=== PATIENT | female | born 1945 | race Caucasian/White ===

== ENCOUNTER 2016-10-16 16:38 | Emergency (ER) | payer MEDICARE, BC ==
[2016-10-16] MEDS ORDERED: NS 0.9% 1000 ML* 1,000 ML IV ONE (17:30)
[2016-10-16] MEDS ORDERED: Ondansetron ODT TAB* 4 MG SL PRN (17:32)
--- NOTE | 2016-10-16 17:33 | UC ---
UC General HPI - HPI Summary HPI Summary: 71 y/o female presents to the urgent care c/o sinus pain,persistent nausea for the past week. Pt reports symptoms started with nasal congestion and yellowish discharge, then she had 4 episodes of N/V on lst Monday10/10/2016. Since then she has had decrease appetite , only drinking Gatorade. She went to her PCP on and he Rx Zofran which she just took this morning. She states she has body aches, sinus pain and pressure, mild abdominal discomfort, weakness and mild ROBERTSON and dizziness. Pt had a BM this morning which was soft and ate some Finnish fries about 2 hrs ago. Pt denies fever, SOB, chest pain, urinary symptoms , - History of Current Complaint Chief Complaint: UCGI Stated Complaint: VOMITING,SINUS PAIN Time Seen by Provider: 10/16/16 17:10 Hx Obtained From: Patient, Family/Piano Refinisher - daughter Onset/Duration: Gradual Onset, Lasting Weeks - 1 week, Still Present Timing: Constant Onset Severity: Mild Current Severity: Moderate Pain Intensity: 6 - ROBERTSON Associated Signs & Symptoms: Positive: Abdominal Pain - mild generalized disconfort, Dizziness. Negative: Back Pain, Chest Pain, Diarrhea, Dysuria - Allergy/Home Medications Allergies/Adverse Reactions: Allergies Allergy/AdvReac Type Severity Reaction Status Date / Time Sulfa Antibiotics Allergy Hives Verified 10/19/16 15:05 Home Medications: Home Medications ALPRAZolam TAB* [Xanax TAB*] 0.5 mg PO TID PRN 10/16/16 [History Confirmed 10/16] FLUoxetine CAP* [Prozac CAP*] 40 mg PO DAILY 10/16/16 [History Confirmed ] Metoclopramide TAB* [Reglan TAB*] 10 mg PO Q6H PRN 10/16/16 [History Confirmed 10/16/16] Multiple Vitamins W/ Minerals [Multivitamin Adult] 1 chw PO DAILY 10/16/16 [ History Confirmed 10/16/16] Omeprazole CAP* [Prilosec CAP* 20 MG] 40 mg PO DAILY 10/16/16 [History Confirmed 10/16/16] Ondansetron ODT TAB* [Zofran 4 MG Odt TAB*] 4 mg PO Q6H PRN 10/16/16 [History Confirmed 10/16/16] Simvastatin [Zocor 40 MG (NF)] 40 mg PO QPM 10/16/16 [History Confirmed 10/16/16 ] ValACYclovir (*) [Valtrex 1 GM(*)] 2 gm PO BID 10/16/16 [History Confirmed 10/16] Valsartan/HCTZ 160/25(NF) [Diovan Hct 160/25(NF)] 1 tab PO DAILY 10/16/16 [ History Confirmed 10/16/16] metroNIDAZOLE VAGINAL 0.75%* TOPICAL PRN 10/16/16 [History] PMH/Surg Hx/FS Hx/Imm Hx Previously Healthy: Yes Endocrine History: Dyslipidemia Cardiovascular History: Hypertension Psychological History: Depression Cancer History: Breast Cancer - 10 year ago s/p lumpectomy - Surgical History Surgical History: Yes Surgery Procedure, Year, and Place: left leg surgery, see above - Family History Known Family History: Positive: Hypertension - Social History Occupation: Employed Part-time Lives: With Family Alcohol Use: None Substance Use Type: None Smoking Status (MU): Former Smoker Review of Systems Constitutional: Fatigue - body aches Skin: Negative Eyes: Negative ENT: Nasal Discharge - yellowish, Sinus Congestion, Sinus Pain/Tenderness Respiratory: Negative Cardiovascular: Negative Gastrointestinal: Abdominal Pain - mild disconfort, Nausea Genitourinary: Negative Motor: Negative Neurovascular: Negative Musculoskeletal: Negative Neurological: Headache - mild Psychological: Negative Is Patient Immunocompromised?: No All Other Systems Reviewed And Are Negative: Yes Physical Exam Triage Information Reviewed: Yes Appearance: Well-Appearing, No Pain Distress, Well-Nourished Vital Signs: Initial Vital Signs Temp 97.4 F 10/16/16 16:39 Pulse 103 10/16/16 16:39 Resp 16 10/16/16 16:39 BP 156/82 10/16/16 16:39 Pulse Ox 100 10/16/16 16:39 Vital Signs Reviewed: Yes Eye Exam: Normal Eyes: Positive: Conjunctiva Clear - PERRLA, EOMI ENT Exam: Normal ENT: Positive: Normal ENT inspection, Hearing grossly normal, Pharynx normal, Nasal congestion, Nasal drainage - edematous erythematous nasal mucosa w/ yellowish nasal discharge, TMs normal - B/L external ear canals impacted with cerumen. Negative: Tonsillar swelling, Tonsillar exudate Neck exam: Normal Neck: Positive: Supple, Nontender, No Lymphadenopathy Respiratory Exam: Normal Respiratory: Positive: Chest non-tender, Lungs clear, Normal breath sounds Cardiovascular Exam: Normal Cardiovascular: Positive: RRR, No Murmur, Pulses Normal, Brisk Capillary Refill Abdominal Exam: Normal Abdomen Description: Positive: Nontender, No Organomegaly, Soft. Negative: CVA Tenderness (R), CVA Tenderness (L) Bowel Sounds: Positive: Present Musculoskeletal Exam: Normal Musculoskeletal: Positive: Strength Intact, ROM Intact, No Edema Neurological Exam: Normal Psychological Exam: Normal Skin Exam: Normal Course/Dx - Course Course Of Treatment: 71 y/o female presents to the urgent care c/o sinus pain, persistent nausea for the past week. Pt reports symptoms started with nasal congestion and yellowish discharge, then she had 4 episodes of N/V on lst Monday10/10/2016. Since then she has had decrease appetite , only drinking Gatorade. She went to her PCP on 10/12/2016 and he Rx Zofran which she just took this morning. She states she has body aches, sinus pain and pressure, mild abdominal discomfort, weakness and mild ROBERTSON and dizziness. Pt had a BM this morning which was soft and ate some Finnish fries about 2 hrs ago. Pt denies fever, SOB, chest pain, urinary symptoms Hx obtained. PE abnormal finding: B/L maxillary and frontal sinus tender to percussion with erythematous nasal mucosa and yellowish drainage, B/L exteranal ear canal inpacted with cerumen. Pt mildly dehydrated. HR 103pbm, and BP156/86. IV fluids adn Zofran ordered 1 bag, Pt felt better after hydration. Rapid Influeza: negative. UA ordered:+ leukoesteraces, +blood. Pt with possible UTI. Pt given first dose of Macrobid at the clinic. Rx Macrobid 100mg PO and Pyridium PO to alleviate urinary symptoms. I discussed all the findings and test results with the patient and daughter. Patient was instructed to return to the ER immediately if any of the symptoms return or worsens. Plan of care was discussed with the patient and understands and agrees. All questions were answered at patient satisfaction. There were no further complaints or concerns. Pt hemodinamically stable, A&OX3, left the clinic ambulating and feeling better. - Differential Dx - Multi-Symptom Differential Diagnoses: Urinary Tract Infection, Other - Influeza, Sinusitis, URI, Bronchitis, gastroenteritis, Provider Diagnoses: 1- Nausea and vomiting. 2- B/L impacted Cerumen. 3-UTI. 4 - Uncontrolled HTN Discharge - Discharge Plan Condition: Stable Disposition: HOME Prescriptions: Nitrofurantoin Macrocrystals* [Macrodantin*] 100 mg PO BID #9 cap Phenazopyridine TAB* [Pyridium 100 mg TAB*] 100 mg PO TID #6 tab Patient Education Materials: Dehydration (ED), Urinary Tract Infection in Women (ED), Cerumen Impaction (ED), Low Sodium Diet (ED) Forms: *Work Release Referrals: Juan José Blankenship MD [Primary Care Provider] - 2 Days Additional Instructions: 1- Please take Macrobid 100mg PO x 5 days. Pyridium 100mg PO TID x 2 days for urinary tract infection. Increase increase fluid intake. 2-Continue taking the Zofran at home for nausea, increase fluid intake, rest,m east small portions. If you develop vomiting, abdominal pain, fever, dizziness increases please go immediately to the ER for further evaluation and treatment. 3-See your PCP in 2-3 days for a f/u on your HTN
[2016-10-16] MEDS ORDERED: Ondansetron INJ* 2 MG/ML VIAL ONE (17:53)
[2016-10-16] MEDS ORDERED: Ondansetron INJ* 2 MG/ML VIAL IV ONE (17:54)
[2016-10-16] MEDS ORDERED: Nitrofurantoin Macrocrystals* 50 MG CAP PO ONE (19:05)
[2016-10-16 19:18] VITALS: BP 129/91
== END 2016-10-16 19:30 | disposition home or self-care (01) ==
LOC: UCEAST 16:38
DX: R11.2 Nausea with vomiting, unspecified (principal); H61.23 Impacted cerumen, bilateral; N39.0 Urinary tract infection, site not specified; I10 Essential (primary) hypertension
CPT/HCPCS: 81003; 87086; 87502; 96360; 96361; 96374; 99212; A9270-GY; G0463; J2405

== ENCOUNTER 2016-10-19 15:00 | Emergency (ER) | payer BC, MEDICARE ==
[2016-10-19] MEDS ORDERED: NS 0.9% 1000 ML* 1,000 ML IV ONE (16:25)
[2016-10-19 16:38] LABS: Hematocrit 40 % (35-47); Hemoglobin 13.7 g/dl (12.0-16.0); Mean Corpuscular HGB Conc 35 g/dl (31-36); Mean Corpuscular Hemoglobin 33 pg (27-31); Mean Corpuscular Volume 97 fL (80-97); Mean Platelet Volume 7 um3 (7.4-10.4); Red Blood Count 4.11 10^6/ul (4.0-5.4); Red Cell Distribution Width 12 % (10.5-15); White Blood Count 9.8 10^3/ul (3.5-10.8)
[2016-10-19 16:51] LABS: Urine Bacteria Absent (Absent); Urine Bilirubin Negative (Negative); Urine Glucose Negative (Negative); Urine Nitrite Positive (Negative)
[2016-10-19 16:53] LABS: ALT 12 U/L (7-52); AST 15 U/L (13-39); Albumin 4.4 g/dL (3.2-5.2); Alkaline Phosphatase 91 U/L (34-104); Anion Gap 10 mmol/L (2-11); BUN/Creatinine Ratio 8.2 (8-20); Blood Urea Nitrogen 8 mg/dL (6-24); C Reactive Protein < 1.00 mg/L (< 5.00); CO2 Carbon Dioxide 26 mmol/L (22-32); Calcium 10.1 mg/dL (8.6-10.3); Chloride 101 mmol/L (101-111); EGFR African American 72.8 (>60); EGFR Non-African American 56.6 (>60); Globulin 3.1 g/dL (2-4); Glucose 105 mg/dL (70-100); Magnesium 1.8 mg/dL (1.9-2.7); Potassium 3.2 mmol/L (3.5-5.0); Sodium 137 mmol/L (133-145); Total Protein 7.5 g/dL (6.4-8.9)
[2016-10-19 17:10] LABS: TSH (Thyroid Stimulating Horm) 1.08 mcIU/mL (0.34-5.60)
--- NOTE | 2016-10-19 18:13 | RAD ---
INDICATION: Right flank pain COMPARISON: None TECHNIQUE: Noncontrast axial source images were acquired from the level hemidiaphragms to the symphysis pubis as part of CT imaging for renal stone. Lung bases: The lung bases are clear. Liver: The liver is normal in size. Noncontrast imaging shows no evidence of a hepatic mass or ductal dilatation. Gallbladder: There are no calcified gallstones. There is no evidence of wall thickening or pericholecystic fluid.. Spleen: The spleen is normal in size. The noncontrast CT appearance is normal. Pancreas: Noncontrast imaging shows no pancreatic mass or ductal dilitation. There is partial fatty replacement Adrenal glands: No masses are identified. Kidneys/Bladder: There is no evidence of nephrolithiasis or CT evidence of hydronephrosis. Noncontrast imaging shows no evidence of a renal mass. The bladder is unremarkable.. Adenopathy: There is no evidence of intraperitoneal or retroperitoneal adenopathy. Evaluation is limited without oral contrast. Fluid collections: There are no free or localized fluid collections. Vessels: The aorta and iliac vessels are normal in caliber. There are no significant atherosclerotic changes. The IVC appears normal Pelvic organs: The uterus and adnexa appear normal GI tract: Evaluation of the bowel is limited without oral contrast. The stomach, small bowel, and lower GI tract appear grossly normal. There are no obstructive findings. The appendix is visualized and appears normal. Soft tissues: No soft tissue abnormalities of the extraperitoneal abdomen or pelvis are identified. Osseous structures: There are no acute osseous findings. IMPRESSION: NO ACUTE CT FINDINGS. NO EVIDENCE OF UROLITHIASIS. NO MASS OR INFLAMMATORY CHANGE.
[2016-10-19 19:14] VITALS: BP 171/88
--- NOTE | 2016-10-19 20:38 | ED ---
Tracey Felix Thomas, scribed for Theo Haro MD on 10/19/16 at 1647 . Abdominal Pain/Female - HPI Summary HPI Summary: The patient is a 71 y/o F who was diagnosed with a UTI three days ago at [facility] and presents to the ED c/o worsening symptoms. At [facility], she presented with sinus pain, N/V, and decreased appetite x10 days. At [facility], she was rehydrated and she was prescribed antibiotics. Her symptoms improved shortly after her visit to [facility] , but they have since worsened. In the ED, her chief complaint is an abd pain described as a pressure that began yesterday. She also c/o nausea, urinary urgency and frequency, decreased appetite, recent weight loss. She denies diarrhea and ROBERTSON, although she does not a feeling described as a pressure that has since resolved. - History of Current Complaint Chief Complaint: EDUrogenitalProblems Stated Complaint: LOSS OF APPETITE,STOMACH ISSUES Time Seen by Provider: 10/19/16 16:10 Hx Obtained From: Patient, Family/Sugar Sampler - daughter in room Onset/Duration: Lasting Days - onset 10 days, Still Present, Worse Since - three days ago Timing: Constant Severity Currently: Severe Location: Diffuse Aggravating Factor(s): Nothing Alleviating Factor(s): Nothing Associated Signs and Symptoms: Positive: Urinary Symptoms, Decreased Appetite, Nausea. Negative: Diarrhea, Other: - NEG: ROBERTSON Allergies/Adverse Reactions: Allergies Allergy/AdvReac Type Severity Reaction Status Date / Time Sulfa Antibiotics Allergy Hives Verified 10/19/16 15:05 PMH/Surg Hx/FS Hx/Imm Hx Previously Healthy: No Endocrine/Hematology History: Denies: Hx Diabetes, Hx Thyroid Disease Cardiovascular History: Reports: Hx Hypertension Respiratory History: Denies: Hx Asthma GI History: Denies: Hx Ulcer - Cancer History Cancer Type, Location and Year: left breast lumpectomy. tubal ligation. left leg surgery Hx Chemotherapy: No Hx Radiation Therapy: Yes - LEFT - Surgical History Surgery Procedure, Year, and Place: left leg surgery, see above Infectious Disease History: No Infectious Disease History: Denies: Hx Hepatitis, Hx Human Immunodeficiency Virus (HIV), History Other Infectious Disease, Traveled Outside the [place] in Last 30 Days - Family History Known Family History: Positive: Hypertension - Social History Alcohol Use: None Substance Use Type: Reports: None Smoking Status (MU): Former Smoker Review of Systems Negative: Fever Positive: Abdominal Pain - "pressure", Nausea, Other - POS: decreased appetite, recent weight loss. Negative: Diarrhea Positive: frequency, urgency Negative: Headache All Other Systems Reviewed And Are Negative: Yes Physical Exam Triage Information Reviewed: Yes Vital Signs On Initial Exam: Initial Vitals Temp Pulse Resp BP Pulse Ox 98.3 F 94 16 173/88 99 10/19/16 15:05 10/19/16 15:05 10/19/16 15:05 10/19/16 15:05 10/19/16 15:05 Vital Signs Reviewed: Yes Appearance: Positive: Well-Appearing, No Pain Distress, Well-Nourished Skin: Positive: Warm, Skin Color Reflects Adequate Perfusion, Dry Head/Face: Positive: Normal Head/Face Inspection Eyes: Positive: Normal ENT: Positive: Normal ENT inspection, Other - Dry mucous membranes Neck: Positive: Supple, Nontender Respiratory/Lung Sounds: Positive: Clear to Auscultation, Breath Sounds Present Cardiovascular: Positive: RRR Abdomen Description: Positive: Soft, Other: - She is mildly tender to her RLQ Bowel Sounds: Positive: Present Musculoskeletal: Positive: Normal Neurological: Positive: Normal Psychiatric: Positive: Normal, Affect/Mood Appropriate Diagnostics - Vital Signs Vital Signs Temp Pulse Resp BP Pulse Ox 10/19/16 16:39 98.3 F 77 16 154/76 99 10/19/16 16:23 101 97 10/19/16 15:05 98.3 F 94 16 173/88 99 - Laboratory Lab Results: Lab Results 10/19/16 Range/Units 16:15 WBC 9.8 (3.5-10.8) 10^3/ul RBC 4.11 (4.0-5.4) 10^6/ul Hgb 13.7 (12.0-16.0) g/dl Hct 40 (35-47) % MCV 97 (80-97) fL MCH 33 H (27-31) pg MCHC 35 (31-36) g/dl RDW 12 (10.5-15) % Plt Count 372 (150-450) 10^3/ul MPV 7 L (7.4-10.4) um3 Neut % (Auto) 62.5 (38-83) % Lymph % (Auto) 27.2 (25-47) % [place] % (Auto) 9.0 (1-9) % Eos % (Auto) 0.9 (0-6) % Baso % (Auto) 0.4 (0-2) % Absolute Neuts (auto) 6.1 (1.5-7.7) 10^3/ul Absolute Lymphs (auto) 2.7 (1.0-4.8) 10^3/ul Absolute Monos (auto) 0.9 H (0-0.8) 10^3/ul Absolute Eos (auto) 0.1 (0-0.6) 10^3/ul Absolute Basos (auto) 0 (0-0.2) 10^3/ul Absolute Nucleated RBC 0 10^3/ul Nucleated RBC % 0 Result Diagrams: 10/19/16 16:15 10/19/16 16:15 Lab Statement: Any lab studies that have been ordered have been reviewed, and results considered in the medical decision making process. - CT CT Abd/Pel CT Interpretation: No Acute Changes - NO ACUTE CT FINDINGS. NO EVIDENCE OF UROLITHIASIS. NO MASS OR INFLAMMATORY CHANGE. ED Physician has reviewed this report and agrees. CT Interpretation Completed By: Radiologist - EKG 17:01 Cardiac Rate: Bradycardia - BPM EKG Interpretation: Sinus rhythm. RBBB. Abdominal Pain Fem Course/Dx - Course Course Of Treatment: Ms. Pollock had vague C/O but nausea was a strong component as well as vague abdominal discomfort. Her W/U was negative and she is taking Zofran so I will add Reglan. - Diagnoses Provider Diagnoses: Abdominal pain Discharge - Discharge Plan Condition: Stable Disposition: HOME Prescriptions: Metoclopramide TAB* [Reglan TAB*] 5 mg PO Q6H #10 tab Patient Education Materials: Abdominal Pain (ED) Forms: *Work Release Referrals: Juan José Blankenship MD [Primary Care Provider] - 4 Days Additional Instructions: Follow up with your primary care provider in 3-5 days. Return to the emergency department for new or worsening symptoms. The documentation as recorded by the Tracey kendrick Thomas accurately reflects the service I personally performed and the decisions made by me, Theo Haro MD.
== END 2016-10-19 19:15 | disposition home or self-care (01) ==
LOC: ED 15:00
DX: R10.9 Unspecified abdominal pain (principal); Z87.891 Personal history of nicotine dependence
CPT/HCPCS: 36415; 74176; 80053; 81003; 81015; 83605; 83735; 84443; 84484; 85025; 85610; 86140; 87086; 93005; 96360; 99284

== ENCOUNTER 2018-06-02 08:49 | Emergency (ER) | payer BC, MEDICARE ==
[2018-06-02] MEDS ORDERED: Ondansetron INJ* 2 MG/ML VIAL IV ONE (09:34)
--- NOTE | 2018-06-02 09:36 | UC ---
Throat Pain/Nasal Srini HPI - HPI Summary HPI Summary: has had sinus infection symps for 7 days, facial pressure, PND, started feeling dizzy and nauseous 4-5 day sago and has been able to eat or drink very littel. now fatigued and sinus pressure - History of Current Complaint Chief Complaint: UCGI Stated Complaint: SINUS ISSUES Time Seen by Provider: 06/02/18 09:27 Hx Obtained From: Patient Onset/Duration: Gradual Onset Severity: Moderate Pain Intensity: 6 Cough: None Associated Signs & Symptoms: Positive: Sinus Discomfort, Nasal Discharge, Vomiting, Other - PND and occassinal dizzy feeling - Allergies/Home Medications Allergies/Adverse Reactions: Allergies Allergy/AdvReac Type Severity Reaction Status Date / Time Sulfa (Sulfonamide Allergy Hives Verified 06/02/18 08:57 Antibiotics) PMH/Surg Hx/FS Hx/Imm Hx Previously Healthy: Yes Cardiovascular History: Hypertension Psychological History: Anxiety, Depression - Surgical History Surgical History: Yes Surgery Procedure, Year, and Place: left leg surgery, see above - Family History Known Family History: Positive: Hypertension - Social History Occupation: Retired Lives: With Family Alcohol Use: None Substance Use Type: None Smoking Status (MU): Former Smoker Review of Systems All Other Systems Reviewed And Are Negative: Yes Constitutional: Positive: Fatigue. Negative: Fever, Chills Skin: Negative: Rash Eyes: Negative: Drainage ENT: Positive: Sinus Congestion, Sinus Pain/Tenderness, Other - PND Respiratory: Positive: Negative. Negative: Cough Cardiovascular: Positive: Negative Gastrointestinal: Positive: Vomiting, Nausea. Negative: Abdominal Pain, Diarrhea Genitourinary: Positive: Negative Neurological: Positive: Negative Psychological: Positive: Negative Is Patient Immunocompromised?: No Physical Exam Triage Information Reviewed: Yes Appearance: No Pain Distress, Well-Nourished Vital Signs: Initial Vital Signs Temp 98 F 06/02/18 08:54 Pulse 86 06/02/18 08:54 Resp 18 06/02/18 08:54 BP 163/103 06/02/18 08:54 Pulse Ox 95 06/02/18 08:54 Vital Signs Reviewed: Yes Eye Exam: Normal ENT: Positive: Pharynx normal, Nasal congestion, TMs normal, Sinus tenderness, Other - PND,oral mucosa dry Neck exam: Normal Neck: Positive: No Lymphadenopathy Respiratory Exam: Normal Respiratory: Positive: Lungs clear, Normal breath sounds Cardiovascular Exam: Normal Cardiovascular: Positive: RRR Abdominal Exam: Normal Abdomen Description: Positive: Nontender, No Organomegaly, Soft Bowel Sounds: Positive: Present Neurological Exam: Normal Skin Exam: Normal Skin: Negative: Rashes Re-Evaluation - Re-Evaluation First Eval Change: Improved - "less nausea" Second Eval Change: Improved - states feel smuch better other than sinus pain persists Throat Pain/Nasal Course/Dx - Differential Dx/Diagnosis Differential Diagnosis/HQI/PQRI: Influenza, Sinusitis, URI, Other - UTI, dehydration Provider Diagnosis: Sinusitis, Dehydration, mild Discharge - Sign-Out/Discharge Documenting (check all that apply): Patient Departure All imaging exams completed and their final reports reviewed: No Studies - Discharge Plan Condition: Improved Disposition: HOME Prescriptions: Cefdinir cap* [Cefdinir 300 MG cap (NF)] 300 mg PO BID #20 cap Ondansetron ODT TAB* [Zofran 4 MG Odt TAB*] 4 mg PO Q8H PRN #9 tab.odt PRN Reason: Nausea/Vomiting Patient Education Materials: Acute Nausea and Vomiting (ED), Sinusitis (ED) Referrals: Juan José Blankenship MD [Primary Care Provider] - 2 Days (Recheck blood pressure and sinusitis) Additional Instructions: drink plenty of clear fluids start antibiotic for sinusitis and use zofran for nausea as directed report to ER if symptoms worsen at any time - Billing Disposition and Condition Condition: IMPROVED Disposition: Home
[2018-06-02] MEDS ORDERED: NS 0.9% 1000 ML** 1,000 ML BOLUS SCH (09:45)
[2018-06-02 11:11] VITALS: BP 170/88
== END 2018-06-02 11:40 | disposition home or self-care (01) ==
LOC: UCEAST 08:49
DX: J32.9 Chronic sinusitis, unspecified (principal); R53.83 Other fatigue; E86.0 Dehydration; R42 Dizziness and giddiness; I10 Essential (primary) hypertension; F41.9 Anxiety disorder, unspecified; F32.9 Major depressive disorder, single episode, unspecified; Z87.891 Personal history of nicotine dependence; Z88.2 Allergy status to sulfonamides
CPT/HCPCS: 81003; 87086; 96360; 96374; 99212; G0463; J2405

== ENCOUNTER 2018-07-14 11:59 | Emergency (ER) | payer BC, MEDICARE ==
[2018-07-14 12:15] VITALS: BP 153/96
--- NOTE | 2018-07-14 12:28 | UC ---
Abdominal Pain Female HPI - HPI Summary HPI Summary: nausea vomiting and diarrhea for 3 days---is still vomiting after taking zofran- -- - History of Current Complaint Chief Complaint: UCGeneralIllness Stated Complaint: ABD PAIN/VOMITING/SINUS PAIN Time Seen by Provider: 07/14/18 12:19 Hx Obtained From: Patient ?: No Onset/Duration: Gradual Onset, Lasting Days - 3, Still Present Timing: Constant Pain Intensity: 9 Pain Scale Used: 0-10 Numeric Location: Diffuse Radiates: No Character: Cramping Aggravating Factor(s): Nothing Alleviating Factor(s): Nothing Associated Signs and Symptoms: Positive: Nausea, Vomiting, Diarrhea Allergies/Adverse Reactions: Allergies Allergy/AdvReac Type Severity Reaction Status Date / Time Sulfa (Sulfonamide Allergy Hives Verified 07/14/18 12:14 Antibiotics) PMH/Surg Hx/FS Hx/Imm Hx Previously Healthy: No Endocrine History: Dyslipidemia Cardiovascular History: Hypertension GI/ History: Gastroesophageal Reflux Psychological History: Depression - Surgical History Surgical History: Yes Surgery Procedure, Year, and Place: left leg surgery. tubal ligation. left leg surgery - Family History Known Family History: Positive: Hypertension - Social History Occupation: Retired Lives: Alone Alcohol Use: None Substance Use Type: None Smoking Status (MU): Former Smoker Review of Systems All Other Systems Reviewed And Are Negative: Yes Constitutional: Positive: Chills, Fatigue Skin: Positive: Negative Eyes: Positive: Negative ENT: Positive: Nasal Discharge, Sinus Congestion Respiratory: Positive: Negative Cardiovascular: Positive: Negative Gastrointestinal: Positive: Abdominal Pain, Vomiting, Diarrhea, Nausea Genitourinary: Positive: Negative Motor: Positive: Negative Neurovascular: Positive: Negative Musculoskeletal: Positive: Negative Neurological: Positive: Negative Psychological: Positive: Negative Is Patient Immunocompromised?: No Physical Exam Triage Information Reviewed: Yes Appearance: Well-Nourished, Ill-Appearing, Pain Distress Vital Signs: Initial Vital Signs Temp 97.3 F 07/14/18 12:07 Pulse 105 07/14/18 12:07 Resp 18 07/14/18 12:07 BP 153/96 07/14/18 12:07 Pulse Ox 98 07/14/18 12:07 Vital Signs Reviewed: Yes Eye Exam: Normal Eyes: Positive: Conjunctiva Clear ENT Exam: Normal ENT: Positive: Normal ENT inspection, Hearing grossly normal, Pharynx normal, Nasal congestion, Uvula midline. Negative: Trismus, Muffled voice, Hoarse voice Dental Exam: Normal Neck exam: Normal Neck: Positive: Supple, Nontender, No Lymphadenopathy Respiratory Exam: Normal Respiratory: Positive: Chest non-tender, Lungs clear, Normal breath sounds, No respiratory distress, No accessory muscle use Cardiovascular Exam: Other Cardiovascular: Positive: No Murmur, Pulses Normal, Brisk Capillary Refill, Tachycardia Abdominal Exam: Other Abdomen Description: Positive: No Organomegaly, Soft. Negative: Nontender, CVA Tenderness (R), CVA Tenderness (L) Bowel Sounds: Positive: Present Musculoskeletal Exam: Normal Musculoskeletal: Positive: Strength Intact, ROM Intact, No Edema Neurological Exam: Normal Neurological: Positive: Alert, Muscle Tone Normal Psychological Exam: Normal Skin Exam: Normal Skin: Positive: Other - pale, clammy Abd Pain Female Course/Dx - Course Course Of Treatment: npo, ivf transfer to [facility] by [facility] - Differential Dx/Diagnosis Provider Diagnosis: Tachycardia, Acute abdominal pain - Physician Notification/Consults Instructed by Provider To: Transfer Discharge - Sign-Out/Discharge Documenting (check all that apply): Patient Departure All imaging exams completed and their final reports reviewed: No Studies - Discharge Plan Condition: Fair Disposition: TRANS HIGHER LVL OF CARE FAC Referrals: Juan José Blankenship MD [Primary Care Provider] - - Billing Disposition and Condition Condition: FAIR Disposition: Trans Higher Lvl of Care Fac
[2018-07-14] MEDS ORDERED: NS 0.9% 1000 ML** 1,000 ML IV ONE (12:29)
== END 2018-07-14 13:11 | disposition short-term general hospital (02) ==
LOC: UCEAST 11:59
DX: R11.2 Nausea with vomiting, unspecified (principal); R00.0 Tachycardia, unspecified; R10.9 Unspecified abdominal pain; E78.5 Hyperlipidemia, unspecified; I10 Essential (primary) hypertension; K21.9 Gastro-esophageal reflux disease without esophagitis; F32.9 Major depressive disorder, single episode, unspecified; Z88.2 Allergy status to sulfonamides; Z87.891 Personal history of nicotine dependence
CPT/HCPCS: 99213; G0463

== ENCOUNTER 2018-07-14 13:35 | Emergency (ER) | payer BC, MEDICARE ==
--- NOTE | 2018-07-14 13:55 | ED ---
GI/ HPI - HPI Summary HPI Summary: A 72 y/o female brought in by [facility] presents to [facility] with a chief complaint of N/V. The patient reports that 1.5 weeks ago she felt congested and had N/V/D with intermittent frontal headaches. The patient then thinks that she took Cipro for three days but claims that it made her feel worse so she stopped taking it. Eventually her symptoms improved, but three days ago her symptoms worsened. She went to [facility] care and was sent to [facility]. She was reportedly given 300 ml of fluid en route. The patient denies swelling of her legs, but reports some abdominal pain. She claims that her diarrhea started out as just water, but now has become a more formed stool. At triage she rated her pain as an 8/10 in severity. She has one episode of diarrhea today. - History of Current Complaint Time Seen by Provider: 07/14/18 13:49 Stated Complaint: NAUSEA/VOMITING/DEHYDRATION PER CONV CARE Hx Obtained From: Patient Onset/Duration: Started Days Ago, Still Present Timing: Constant, Lasting Days Severity: Severe Current Severity: Severe Location of Pain: Diffuse Pain Characteristics: Unable to describe Associated Signs and Symptoms: Positive: Diarrhea, Abdominal Pain, Other: - headache. Negative: Fever Aggravating Factor(s): Nothing Alleviating Factor(s): Nothing - Allergy/Home Medications Allergies/Adverse Reactions: Allergies Allergy/AdvReac Type Severity Reaction Status Date / Time Sulfa (Sulfonamide Allergy Hives Verified 07/14/18 12:14 Antibiotics) PMH/Surg Hx/FS Hx/Imm Hx Endocrine/Hematology History: Denies: Hx Diabetes, Hx Thyroid Disease Cardiovascular History: Reports: Hx Hypertension Respiratory History: Denies: Hx Asthma, Hx Chronic Obstructive Pulmonary Disease (COPD) GI History: Denies: Hx Ulcer - Cancer History Cancer Type, Location and Year: left breast lumpectomy Hx Chemotherapy: No Hx Radiation Therapy: Yes - LEFT - Surgical History Surgery Procedure, Year, and Place: left leg surgery. tubal ligation. left leg surgery Infectious Disease History: Denies: Hx Hepatitis, Hx Human Immunodeficiency Virus (HIV), History Other Infectious Disease - Family History Known Family History: Positive: Hypertension - Social History Alcohol Use: None Substance Use Type: Reports: None Smoking Status (MU): Former Smoker Review of Systems Negative: Fever Positive: Abdominal Pain, Vomiting, Diarrhea, Nausea Negative: Edema Positive: Headache All Other Systems Reviewed And Are Negative: Yes Physical Exam - Summary Physical Exam Summary: Appearance: The patient is well-nourished in no acute distress and in no acute pain. Skin: The skin is warm and dry and skin color reflects adequate perfusion. HEENT: The head is normocephalic and atraumatic. The pupils are equal and reactive. The conjunctivae are clear and without drainage. frontal sinus does not transilluminate. nasal congestion. Retching when first in the room. Mouth reveals moist mucous membranes and the throat is without erythema and exudate. The external ears are intact. The ear canals are patent and without drainage. The tympanic membranes are intact. Neck: The neck is supple with full range of motion and non-tender. There are no carotid bruits. There is no neck vein distension. Respiratory: Chest is non-tender. Lungs are clear to auscultation and breath sounds are symmetrical and equal. Cardiovascular: Heart is regular rate and rhythm. There is no murmur or rub auscultated. There is no peripheral edema and pulses are symmetrical and equal. Abdomen: The abdomen is soft and non-tender. There are normal bowel sounds heard in all four quadrants and there is no organomegaly palpated. Musculoskeletal: There is no back tenderness noted. Extremities are non-tender with full range of motion. There is good capillary refill. There is no peripheral edema or calf tenderness elicited. Neurological: Patient is alert and oriented to person, place and time. The patient has symmetrical motor strength in all four extremities. Cranial nerves are grossly intact. Deep tendon reflexes are symmetrical and equal in all four extremities. Psychiatric: The patient has an appropriate affect and does not exhibit any anxiety or depression. Triage Information Reviewed: Yes Vital Signs Reviewed: Yes Diagnostics - Laboratory Result Diagrams: 07/14/18 14:11 07/14/18 14:11 Lab Statement: Any lab studies that have been ordered have been reviewed, and results considered in the medical decision making process. Re-Evaluation - Re-Evaluation First Eval Re-Evaluation Time: 18:35 Comment: Pt is feeling better GIGU Course/Dx - Course Course Of Treatment: Ms. Pollock was seen at [facility] about a month ago for frontal headache and congestion. She was diagnosed with sinusitis and given Keflex. She did not like the Keflex as it made her nauseated and vomiting and stopped taking it. She did get somewhat better for a while and then in the last week or so she is begun to have a return of her symptoms. She complains of a frontal forehead headache and nasal congestion which drips down the back of her throat and makes her nauseated. She has been vomiting some. She's also had some diarrhea but in the last couple days it's just turned to loose stool. She was nontoxic in appearance and somewhat hypertensive on arrival. She was given fluids while labs were obtained which were generally unremarkable. On exam her frontal sinuses did not transilluminate well bilaterally and she was tender over them. She was treated symptomatically and her blood pressure was monitored and fluctuated. Her headache improved with Toradol and there was no relationship between her headache and her blood pressures. She continued to have a headache when her blood pressures were more reasonable and she continued to at times have high blood pressure after her headache was relieved. I'm going to give her Zofran to help with tolerating Augmentin for sinusitis. I recommended close follow-up on Monday with her PCP and return if she is worsening in any way. Her family expressed the desire that she be admitted to the hospital and I do not feel like I have admitting criteria at this time however I offered to consult the hospitalist and they elected to go home. - Diagnoses Provider Diagnoses: Sinusitis, Hypertension Discharge - Sign-Out/Discharge Documenting (check all that apply): Patient Departure - DC Patient Received Moderate/Deep Sedation with Procedure: No - Discharge Plan Condition: Stable Disposition: HOME Prescriptions: Amoxicillin/Clavulanate TAB* [Augmentin TAB 875*] 875 mg PO BID #20 tab Ondansetron ODT TAB* [Zofran Odt TAB*] 4 mg PO Q6H PRN #20 tab.odt PRN Reason: Nausea/Vomiting Patient Education Materials: Sinusitis (ED), Hypertension (ED) Referrals: Juan José Blankenship MD [Primary Care Provider] - (on 07/16/18) Additional Instructions: Return to the ED if you experience any new or worsening symptoms. - Billing Disposition and Condition Condition: STABLE Disposition: Home - Attestation Statements Document Initiated by Scribe: Yes Documenting Scribe: Bijan Perez Provider For Whom Scribe is Documenting (Include Credential): Theo Haro MD Scribe Attestation: I, Bijan Perez, scribed for Theo Haro MD on 07/14/18 at 1902. Scribe Documentation Reviewed: Yes Provider Attestation: The documentation as recorded by the scribe, Bijan Perez accurately reflects the service I personally performed and the decisions made by me, Theo Haro MD Status of Scribe Document: Viewed
[2018-07-14] MEDS ORDERED: NS 0.9% 1000 ML** 1,000 ML IV ONE ×2 (13:58→16:45)
[2018-07-14] MEDS ORDERED: Ondansetron INJ* 2 MG/ML VIAL IV ONE (13:58)
[2018-07-14 14:21] LABS: ABS Lymphocytes 0.9 10^3/ul (1.0-4.8); ABS Monocytes 0.6 10^3/ul (0-0.8); Eosinophil % 0.1 %; Hematocrit 42 % (35-47); Hemoglobin 14.5 g/dL (12.0-16.0); Lymphocyte % 8.8 %; Mean Corpuscular HGB Conc 34 g/dL (31-36); Mean Corpuscular Hemoglobin 33 pg (27-31); Mean Corpuscular Volume 96 fL (80-97); Mean Platelet Volume 7.5 fL (7.4-10.4); Platelet Count 357 10^3/uL (150-450); Red Blood Count 4.39 10^6 /uL (3.70-4.87); Red Cell Distribution Width 13 % (10-15); White Blood Count 10.5 10^3/uL (3.5-10.8)
[2018-07-14 14:40] LABS: ALT 28 U/L (7-52); AST 25 U/L (13-39); Albumin 4.7 g/dL (3.2-5.2); Albumin/Globulin Ratio 1.5 (1-3); Alkaline Phosphatase 103 U/L (34-104); Anion Gap 12 mmol/L (2-11); BUN/Creatinine Ratio 13.5 (8-20); Blood Urea Nitrogen 14 mg/dL (6-24); C Reactive Protein < 1.00 mg/L (<8.01); CO2 Carbon Dioxide 25 mmol/L (22-32); Calcium 10.3 mg/dL (8.6-10.3); Chloride 95 mmol/L (101-111); EGFR Non-African American 52.1 (>60); Globulin 3.2 g/dL (2-4); Glucose 145 mg/dL (70-100); Potassium 3.5 mmol/L (3.5-5.0); Sodium 132 mmol/L (135-145); Total Protein 7.9 g/dL (6.4-8.9)
[2018-07-14] MEDS ORDERED: Valsartan TAB* 160 MG PO SCH (14:45)
[2018-07-14] MEDS ORDERED: Hydrochlorothiazide TAB* 25 MG PO SCH (14:45)
[2018-07-14] MEDS ORDERED: Valsartan/HCTZ 160/12.5(NF) TAB PO SCH ×2 (15:00→17:00)
[2018-07-14] MEDS ORDERED: Hydrochlorothiazide TAB* 25 MG PO ONE (17:00)
[2018-07-14] MEDS ORDERED: Valsartan TAB* 160 MG PO ONE (17:00)
[2018-07-14] MEDS ORDERED: Ketorolac INJ* 30 MG/ML 1 ML VIAL IV PUSH ONE (17:47)
[2018-07-14] MEDS ORDERED: Metoprolol Tartrate IV* 1 MG/ML 5 ML VIAL IV ONE (17:51)
[2018-07-14 18:40] VITALS: BP 212/88
== END 2018-07-14 18:51 | disposition home or self-care (01) ==
LOC: ED 13:35
DX: J32.9 Chronic sinusitis, unspecified (principal); I10 Essential (primary) hypertension; R11.2 Nausea with vomiting, unspecified; R19.7 Diarrhea, unspecified; Z88.2 Allergy status to sulfonamides; Z87.891 Personal history of nicotine dependence
CPT/HCPCS: 36415; 80053; 85025; 86140; 96361; 96374; 96375; 99284; A9270-GY; J1885; J2405; J3490